=== PATIENT | male | born 1985 | race American Indian/Alaskan Native ===

== ENCOUNTER 2020-02-28 01:59 | Emergency (ER) | payer SELFPAY ==
[2020-02-28 03:02] LABS: Bilirubin,Urine NEG (Negative); Blood,Urine NEG (Negative); Color,Urine Yellow (Yellow); Mucus,Urine FEW /HPF; Protein,Urine <15 mg/dL mg/dL (Negative)
[2020-02-28 03:09] LABS: Amphetamine Screen,Urine PRESUMPTIVE NEGATIVE; Benzodiazepines Screen,Urine PRESUMPTIVE NEGATIVE; Cannabinoid Screen,Urine PRESUMPTIVE POSITIVE; Cocaine Screen,Urine PRESUMPTIVE NEGATIVE; Methadone Screen,Urine PRESUMPTIVE NEGATIVE; Opiate Screen,Urine PRESUMPTIVE NEGATIVE
[2020-02-28 03:26] LABS: Basophils # (Auto) 0.1 K/mm3 (0.0-0.1); Basophils % (Auto) 1.2 % (0.0-1.8); Eosinophils # (Auto) 0.3 K/mm3 (0.0-0.4); Eosinophils % (Auto) 4.3 % (0.0-4.3); Hematocrit 39.4 % (35.5-45.6); Hemoglobin 13.7 gm/dl (11.8-15.2); Lymphocytes # (Auto) 2.4 K/mm3 (1.2-5.4); Lymphocytes % (Auto) 40.4 % (13.4-35.0); Mean Corpuscular HGB Conc 35 % (32-34); Mean Corpuscular Volume 90 fl (84-94); Monocytes # (Auto) 0.3 K/mm3 (0.0-0.8); Monocytes % (Auto) 4.3 % (0.0-7.3); Platelet Count 328 K/mm3 (140-440); Red Blood Count 4.39 M/mm3 (3.65-5.03); Red Cell Distribution Width 13.4 % (13.2-15.2)
[2020-02-28 03:36] LABS: BUN/Creatinine Ratio 15; Blood Urea Nitrogen 15 mg/dL (9-20); Hemolysis Index 7
[2020-02-28] MEDS ORDERED: diphenhydrAMINE 50 MG/ML VIAL IM PRN (12:43)
[2020-02-28] MEDS ORDERED: LORazepam 2 MG/ML VIAL IM PRN (12:43)
[2020-02-28] MEDS ORDERED: HALOPERIDOL LACTATE 5 MG/1 ML INJ IM PRN (12:43)
[2020-02-28] MEDS ORDERED: HALOPERIDOL 5 MG TAB PO ONE (12:47)
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
[2020-02-29] MEDS ORDERED: ZIPRASIDONE 20 MG CAP PO ONE (15:21)
[2020-02-29 20:08] VITALS: BP 119/79
[2020-02-29] MEDS ORDERED: traZODone 50 MG TAB PO SCH (22:00)
--- NOTE | 2020-03-01 12:08 | Progress Note ---
Subjective - Reason for Consult Consult date: 03/01/20 Reason for consult: MHE Requesting physician: DANIELLE REY - Chief Complaint Chief complaint: PSYCH PROGRESS Patient seen this AM, out of seclusion and in a shared room, less restlness and with a calm affect. Pt reports feeling much better since been started on meds, denies SI, HI thoughts, and AVH wishes to be discharged on current medications. REVIEW OF SYSTEMS Constitutional: Negative for weight loss ENT: Negative for stridor Respiratory: Negative for cough or hemoptysis All other systems reviewed and are negative MENTAL STATUS EXAMINATION General Appearance and Behavior: Age appropriate, good hygiene, wearing appropriate clothes, lying in bed, good eye contact, cooperative polite with questioning. Cooperation: Participating/engaged Psychomotor Behavior: unremarkable and within normal limits Mood: "much better" Affect and affective range: congruent with mood Thought Process: logical Thought Content: logical Intellectual Functioning: Average Suicidal Ideation: denies Homicidal Ideation: denies Impulse Control: unimpaired Insight and Judgment: improved insight and judgment Memory: Normal Attention: Normal Orientation: Alert, oriented RECOMMENDATIONS Schizophrenia MEDICATIONS: restart home meds Risks, benefits and alternatives of medications discussed with the patient, questions answered and consent obtained from patient. PSYCHOTHERAPY: Supportive psychotherapy provided MEDICAL: Per primary team DELIRIUM PRECAUTIONS: Please re-orient patient frequently, keep lights on during the day, and minimize benzodiazepines and opiates as these medications could worsen patient's confusion. 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 Please contact with any questions and/or concerns. Mental Status Exam - Vital signs Last Vital Signs Temp 97.3 F L 02/29/20 20:06 Pulse 64 02/29/20 20:06 Resp 18 02/29/20 20:06 BP 119/79 02/29/20 20:06 Pulse Ox 100 02/29/20 20:06
== END 2020-03-01 14:55 ==
LOC: ED 01:59 → EEVIPCON 01:59 → ED 03-01 14:55
DX: F25.1 Schizoaffective disorder, depressive type (principal); R45.851 Suicidal ideations; R45.850 Homicidal ideations; F17.200 Nicotine dependence, unspecified, uncomplicated; Z79.899 Other long term (current) drug therapy
CPT/HCPCS: 36415; 80048; 80307; 81001; 85025; 96372; 99284; J1200; J2060; 80320; G0480

== ENCOUNTER 2020-03-02 00:57 | Emergency (ER) | payer SELFPAY ==
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
[2020-03-02 02:58] LABS: Bilirubin,Urine NEG (Negative); Blood,Urine NEG (Negative); Color,Urine Yellow (Yellow); Mucus,Urine FEW /HPF; Protein,Urine <15 mg/dL mg/dL (Negative)
[2020-03-02 03:06] LABS: Basophils # (Auto) 0.1 K/mm3 (0.0-0.1); Basophils % (Auto) 0.7 % (0.0-1.8); Eosinophils # (Auto) 0.2 K/mm3 (0.0-0.4); Hematocrit 45.6 % (35.5-45.6); Hemoglobin 15.3 gm/dl (11.8-15.2); Lymphocytes # (Auto) 2.1 K/mm3 (1.2-5.4); Lymphocytes % (Auto) 24.3 % (13.4-35.0); Mean Corpuscular HGB Conc 34 % (32-34); Mean Corpuscular Volume 91 fl (84-94); Monocytes # (Auto) 0.3 K/mm3 (0.0-0.8); Monocytes % (Auto) 3.5 % (0.0-7.3); Platelet Count 369 K/mm3 (140-440); Red Blood Count 5.03 M/mm3 (3.65-5.03); Red Cell Distribution Width 13.3 % (13.2-15.2)
[2020-03-02 03:06] LABS: Amphetamine Screen,Urine PRESUMPTIVE NEGATIVE; Benzodiazepines Screen,Urine PRESUMPTIVE NEGATIVE; Cannabinoid Screen,Urine PRESUMPTIVE POSITIVE; Cocaine Screen,Urine PRESUMPTIVE NEGATIVE; Methadone Screen,Urine PRESUMPTIVE NEGATIVE; Opiate Screen,Urine PRESUMPTIVE NEGATIVE
[2020-03-02 03:13] LABS: BUN/Creatinine Ratio 11; Blood Urea Nitrogen 10 mg/dL (9-20); Calcium 9.6 mg/dL (8.4-10.2); Hemolysis Index 41
[2020-03-02] MEDS ORDERED: LORazepam 2 MG/ML VIAL IM PRN (10:00)
[2020-03-02] MEDS ORDERED: HALOPERIDOL LACTATE 5 MG/1 ML INJ IM PRN (10:00)
--- NOTE | 2020-03-02 10:01 | Event Note ---
Date: 03/02/20 1013 is recommended by the psychiatric team as follows: Therefore, I have ordered its as well as placed as needed medications for agitation. 1013: Recommend 1013 due to HI towards individuals outside of the hospital with suicidal ideation with a plan to get shot in the head.
[2020-03-02] MEDS ORDERED: diphenhydrAMINE 50 MG/ML VIAL IM PRN (10:30)
[2020-03-02] MEDS ORDERED: POTASSIUM CHLORIDE 10 MEQ 0 MEQ/0 ML BAG IV ONE (16:20)
[2020-03-02] MEDS ORDERED: traZODone 100 MG TAB PO SCH (22:00)
[2020-03-03] MEDS ORDERED: ZIPRASIDONE MESYLATE 20 MG VIAL IM ONE ×2 (00:22→00:30)
[2020-03-03] MEDS ORDERED: WATER FOR INJ Sterile (PF) 10 ML ONE (00:25)
[2020-03-03 10:01] VITALS: BP 126/79
--- NOTE | 2020-03-03 14:17 | Consultation ---
History of Present Illness - Reason for Consult Consult date: 03/03/20 Reason for consult: paranoid - History of Present Psychiatric Illness Malcolm Greenberg is a 34y/o male patient who presented to the ER for suicidal ideation. The patient was seen in this ER a few days ago. During my interview with the patient today, he is a/o x 3. He is calm, and cooperative. He is ning te. He is conversational. The patient says he is originally from [place] and plans to have his family buy him a bus ticket back, but says "I will stay in a assisted until they do." He says "I get a check and I'm the payee, so I'll get back to [place] one way or the other." He says, "I really don't have any family here and there have been too many obstacles in my path." He says when he first came to the ER, he was "suicidal." The patient denies SI/HI at present, and states, "not even a little bit." He also denies any fear or feelings of endangerment. The patient denies hallucinations of any kind. He says, "ma'am, right now I feel good." The patient says he "slept good." He says he "he says he smokes marijuana at times, but nothing else." The patient also says he smokes "cigarets." He then laughs and says, "but I don't want no patch." Spoke with mom about the patient being discharged. Mom is okay with the patient going home, but says the patient wants to run the streets. Informed mom that we could not hold the patient to keep him out of the streets. PAST PSYCHIATRIC HISTORY Diagnoses: Schziphrenia, depression, PTSD, Bipolar Suicide attempts or Self-harm behavior: Yes Prior psychiatric hospitalizations: Yes Substance Abuse history: "Marijuana" Previous psychiatric medications tried: Yes Outpatient treatment: unknown PAST MEDICAL HISTORY: None reported or documented Family Psychiatric History: None reported or documented SOCIAL HISTORY Marital Status: Single Living Arrangements: homeless Employment Status: Disabled Access to guns/weapons: none reported Education: Community college drop out History of Abuse: None reported or documented Legal History:None reported or documented REVIEW OF SYSTEMS Constitutional: Negative for weight loss ENT: Negative for stridor Respiratory: Negative for cough or hemoptysis All other systems reviewed and are negative MENTAL STATUS EXAMINATION General Appearance: Dressed appropriately Behavior: Calm and cooperative, polite Mood: "good" Affect and affective range: Congruent Thought Process: Goal directed Speech: Normal pace and tone Thought Content: Suicidal Ideation: Denies SI Homicidal Ideation: Denies HI Hallucinations: Denies Delusions: Denies Insight and Judgment: Limited Memory/Cognition: Limited Attention: Normal ASSESSMENT Bipolar Disorder RECOMMENDATIONS d/c 1013 Scripts Olanzapine 10mg po daily Trazodone 100mg po qhs Sitter: Defer to primary Medical: per primary Disposition: Do not recommend acute inpatient psychiatric. The patient may discharge home once medically clear. The patient understands that if suicidal thoughts or any feelings of endangerment are to arise he is to seek immediate assistance, including the crisis hotline, 1 or the ER. The tax accounting assistant is to further discuss safety plan, and give the patient resources for outpatient psychiatry, medication assistance, and homeless shelters. The patient to follow up with outpatient psych or primary in 7 to 14 days upon discharge. The tax accounting assistant to give the patient a transportation pass The treatment plan, including benefits and side effects of medication was explained to the patient. He verbalizes understanding and agreement of treatment plan. Will Sign off. Thank you for this consult. Please call with any questions or concerns. Medications and Allergies Allergies Allergy/AdvReac Type Severity Reaction Status Date / Time No Known Allergies Allergy Verified 04/09/14 03:42 Home Medications Medication Instructions Recorded Confirmed Last Taken Type diphenhydrAMINE [Benadryl] 50 mg PO DAILY 04/26/14 03/02/20 Unknown History risperiDONE [Risperdal] 0.25 mg pe PO DAILY 04/26/14 03/02/20 Unknown History traZODone [Desyrel] 50 mg PO QHS 07/21/14 03/02/20 Unknown History OLANzapine [Zyprexa] 10 mg PO ONCE #30 tablet 03/01/20 03/02/20 Unknown Rx traZODone [Desyrel] 100 mg PO QHS #30 tablet 03/01/20 03/02/20 Unknown Rx OLANzapine [Zyprexa] 10 mg PO DAILY #30 tablet 03/03/20 Unknown Rx traZODone [Desyrel] 100 mg PO QHS #30 tablet 08/15/20 Unknown Rx Active Meds: Active Medications Diphenhydramine HCl (Benadryl) 50 mg IM Q6H PRN PRN Reason: agitation Haloperidol Lactate (Haldol) 5 mg IM Q6HR PRN PRN Reason: Agitation Lorazepam (Ativan) 2 mg IM Q4HR PRN PRN Reason: Agitation Olanzapine (Zyprexa) 10 mg PO QDAY [facility] Last Admin: 03/03/20 09:36 Dose: 10 mg Documented by: Trazodone HCl (Desyrel) 100 mg PO QHS [facility] Last Admin: 03/02/20 22:13 Dose: 100 mg Documented by: Mental Status Exam - Vital signs Last Vital Signs Temp 97.5 F L 03/03/20 09:59 Pulse 74 03/03/20 09:59 Resp 18 03/03/20 09:59 BP 126/79 03/03/20 09:59 Pulse Ox 100 03/03/20 05:47 Results Result Diagrams: 03/02/20 02:27 03/02/20 02:27 All other labs normal.
== END 2020-03-03 16:50 | disposition home or self-care (01) ==
LOC: EEVIPCON 00:57 → ED 00:57
DX: F31.9 Bipolar disorder, unspecified (principal); F20.89 Other schizophrenia; F17.200 Nicotine dependence, unspecified, uncomplicated; F12.10 Cannabis abuse, uncomplicated
CPT/HCPCS: 36415; 80048; 80307; 81001; 85025; 96372; 99284; J1630; J2060; J3486; 80320; G0480; J1642; J3480

== ENCOUNTER 2021-05-25 13:39 | Emergency (ER) | payer SELFPAY ==
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
[2021-05-25 15:39] LABS: Basophils % (Auto) 0.6 % (0.0-1.8); Eosinophils % (Auto) 0.6 % (0.0-4.3); Hematocrit 46.1 % (35.5-45.6); Hemoglobin 14.7 gm/dl (11.8-15.2); Lymphocytes # (Auto) 2.4 K/mm3 (1.2-5.4); Lymphocytes % (Auto) 41.4 % (13.4-35.0); Mean Corpuscular HGB Conc 32 % (32-34); Mean Corpuscular Volume 89 fl (84-94); Monocytes # (Auto) 0.2 K/mm3 (0.0-0.8); Monocytes % (Auto) 2.8 % (0.0-7.3); Platelet Count 316 K/mm3 (140-440); Red Blood Count 5.18 M/mm3 (3.65-5.03); Red Cell Distribution Width 13.8 % (13.2-15.2)
[2021-05-25 15:50] LABS: Amphetamine Screen,Urine Negative; Benzodiazepines Screen,Urine Negative; Cannabinoid Screen,Urine Negative; Cocaine Screen,Urine Negative; Methadone Screen,Urine Negative; Opiate Screen,Urine Negative
[2021-05-25 15:52] LABS: Mucus,Urine FEW /HPF; WBC,Urine < 1.0 /HPF (0.0-6.0)
[2021-05-25 15:53] LABS: BUN/Creatinine Ratio 7; Blood Urea Nitrogen 7 mg/dL (9-20); Calcium 9.8 mg/dL (8.4-10.2); Hemolysis Index 4
[2021-05-25 15:56] VITALS: BP 135/79
[2021-05-25 16:09] LABS: Bilirubin,Urine Negative (Negative); Color,Urine Yellow (Yellow)
[2021-05-25 16:10] LABS: Blood,Urine Trace (Negative); Urobilinogen,Urine < 2.0 mg/dL (<2.0)
== END 2021-05-25 17:07 | disposition home or self-care (01) ==
LOC: ED 13:39
DX: R45.851 Suicidal ideations (principal); F20.9 Schizophrenia, unspecified; F17.200 Nicotine dependence, unspecified, uncomplicated; F12.90 Cannabis use, unspecified, uncomplicated; Z79.899 Other long term (current) drug therapy
CPT/HCPCS: 36415; 80048; 80307; 80320; 81001; 85025; 99283; G0480